=== PATIENT | female | born 1985 | race Caucasian/White ===

== ENCOUNTER 2023-11-23 21:20 | Emergency (ER) | payer BC ==
[~2023-11-23] VITALS: Ht 154.9 cm; Wt 63.5 kg
[2023-11-23] MEDS: IBUPROFEN 600 MG TAB PO STA (22:30)
[2023-11-23 23:22] VITALS: PULSE 73; RESP 16; TEMP 99; O2SAT 100
== END 2023-11-23 23:21 | disposition home or self-care (01) ==
LOC: FSED 21:32
DX: R68.83 Chills (without fever) (principal); M25.512 Pain in left shoulder; X50.1XXA Overexertion from prolonged static or awkward postures, initial encounter; Y92.89 Other specified places as the place of occurrence of the external cause; J45.909 Unspecified asthma, uncomplicated; Z11.52 Encounter for screening for COVID-19
CPT/HCPCS: 0223U; 81025; 87400; 93005; 99283